=== PATIENT | female | born 1990 ===

== ENCOUNTER 2021-05-20 13:10 | Inpatient (IN) | payer OTHER ==
[~2021-05-20] VITALS: Ht 162.6 cm; Wt 75.0 kg
[2021-05-22] VITALS (51 sets, daily range): BP systolic 95–158; BP diastolic 50–92; PULSE 50–91; TEMP 97.8–98.4
--- NOTE | 2021-05-22 09:10 | NUR ---
pt ambulatory to LR6 with spouse, changed into gown, FHR/TOCO applied and explained. patient here for scheduled induction. Pt denies any leaking of fluid/vaginal bleeding/decreased movement/regular contractions. Plan of care discussed. 0920: IV started in left upper arm, blood obtained and sent to lab, LR infusing. Assessment completed, consents signed, packet given. 0942: pitocin induction discussed, patient agrees with plan of care. Pitocin started at 2mU/hr per protocol.
[2021-05-22] MEDS ORDERED: PRENATAL TABLET PO (09:35)
[2021-05-22 09:49] LABS: BASO % 0.4 % (0.0-2.0); EOS # 0.1 (0.0-0.7); EOS % 0.9 % (0-4.0); HEMATOCRIT 39.8 % (37.0-47.0); HEMOGLOBIN 13.4 g/dl (12.5-16.0); LYMPH # 0.9 (1.2-3.4); LYMPH % 12.1 % (20.0-51.0); MEAN CELL VOLUME 88 fl (80.0-100.0); MEAN CORPUSCULAR HEMOGLOBIN 30 pg (27.0-31.0); MEAN CORPUSCULAR HGB CONC 34 g/dl (33.0-37.0); MEAN PLATELET VOLUME 11.3 fl (7.4-10.4); MONO # 0.5 (0.1-0.6); MONO % 6.6 % (1.7-9.3); PLATELET COUNT 192 K/mm3 (130-400); RED BLOOD COUNT 4.54 M/mm3 (4.10-5.30)
--- NOTE | 2021-05-22 11:55 | NUR ---
Roles at bedside and assessing patient and FHR strip. Plan of care discussed and questions answered. SVE per physician /-2 and orders to continue to increase pitocin. 1255: Patient standing at bedside. 1400: Clear amount of pink tinged fluid noted on chucks on bed. Will continue to monitor. 1445: Small amount of pink tinged fluid noted to chucks after sitting on birthing ball, patient states " I need to go pee and feel like I already did a little". Will continue to monitor fluid/discharge.
--- NOTE | 2021-05-22 13:33 | NUR ---
PATIENT AMBULATING BACK FROM BATHROOM, CONTRACTION MONITOR BEING READJUSTED.
--- NOTE | 2021-05-22 14:45 | NUR ---
PATIENT ASSISTED TO BIRTHING BALL.
--- NOTE | 2021-05-22 15:47 | NUR ---
PATIENT RIGHT LATERAL WITH LEG IN STIRRUP, CONTRACTION MONITOR READJUSTED.
--- NOTE | 2021-05-22 16:15 | NUR ---
Patient up to bathroom and pink tinged fluid leaking to floor. Patient SROM at about 1400. Clear fluid noted. 1640: DrHelen Roles at bedside and assessing patient and FHR strip. SVE-2/80/-2. Order to continue increasing to 30mU/hr.
--- NOTE | 2021-05-22 19:45 | NUR ---
UPDATED ON PT STATUS. AT 1900 SVE 1-2/70/-2, PT DENIES PAIN WITH CONTRACTIONS, BEGINNING TO FEEL "MILD CRAMPING". PITOCIN REMAINS AT 30MU SINCE 1714. SEE PHYS. NOTIFICATION. NO NEW ORDERS AT THIS TIME.
--- NOTE | 2021-05-22 20:20 | NUR ---
UPDATED AT THIS TIME. PT STILL NOT HAVING PAIN WITH CONTRACTIONS, PITOCIN REMAINS AT 30MU. MINIMAL BLEEDING ON BED PAD BUT NO OBVIOUS LEAKING OF FLUID WITH POSITION CHANGES OR AMBULATION. EFM REMAINS CATEGORY 1 STRIP AT THIS TIME. PER TURN PITOCIN OFF. IF CONTRACTIONS BEGIN TO SPACE OUT ADMINISTER 25MCG ORAL CYTOTEC @ 2200. MAY REPEAT X1 Q4H. GIVE 2G IV ANCEF AT 0200 FOR PREVENTATIVE MEASURES DUE TO 1400 SROM. MAY RESTART PITOCIN AT 0600. CALL BACK AT 2200 IF CONTRACTIONS DO NOT SPACE OUT AFTER TURNING PIT OFF. SEE PHYS. NOTIFICATION.
--- NOTE | 2021-05-22 22:25 | NUR ---
UPDATED AT THIS TIME. SVE -/-2. CONTRACTIONS Q2-2.5 MINUTES. PT STILL DENIES PAIN WITH CONTRACTIONS OTHER THAN "MILD CRAMPING". PER DO NOT ADMINISTER CYTOTEC PREVIOUSLY ORDERED. CONTINUE TO MONITOR UNTIL 0000. IF CONTRACTIONS STOP ADMINISTER CYTOTEC PO. IF THEY CONTINUE, WE ARE TO CALL HER BACK. SEE PHYS.NOTIFICATION.
[2021-05-23] VITALS (53 sets, daily range): BP systolic 86–139; BP diastolic 50–86; PULSE 50–103; TEMP 97.6–98.2
--- NOTE | 2021-05-23 | NUR ---
UPDATED AT THIS TIME PER REQUEST. PT C/O PAIN WITH CONTRACTIONS. CONTRACTIONS CURRENTLY SPACING OUT TO Q5MIN. CATEGORY 1 STRIP. PER RESTART PITOCIN AT 2MU PER PROTOCOL. INCREASE PER PROTOCOL. DO NOT ADMINISTER CYTOTEC PO.
--- NOTE | 2021-05-23 02:41 | NUR ---
PT SITTING ON EDGE OF BED PREPARING FOR EPIDURAL PLACEMENT. DIFFICULTY TRACING EFM/TOCO DUE TO MATERNAL POSITIONING. CONTRACTIONS Q2-3 MIN WITH PALPATION. INTERMITTENT EFM TRACING CATEGORY 1 STRIP. LR BOLUS INFUSING. VITAL SIGNS STABLE. 0241: TEST DOSE PER COLLEEN GRADUATE RESEARCH ASSISTANT 0251: 7 MINUTE DECELATION FOLLOWING EPIDURAL PLACEMENT. MATERNAL BP 86/50. IV EPHEDRINE ADMINISTERED. LR BOLUS INFUSING. MOTHER PLACED IN KNEE CHEST POSITION. HEART RATE BEGINS TO RECOVER. 0300: PT PLACED IN LL POSITION. HEART RATE BASELINE REMAINS 155. CATEGORY 1 STRIP AT THIS TIME. MATERNAL BP STABLE. 0340: RECURRENT LATE DECELERATIONS NOTED. PT PLACED IN RL POSITION. IMPROVEMENT NOTED WITH POSITION CHANGE.
--- NOTE | 2021-05-23 04:59 | NUR ---
UPDATE TO REGARDING DECEL EVENT FOLLOWING EPIDURAL PLACEMENT. RECURRENT LATES SINCE THIS EVENT. MINIMAL IMPROVEMENT WITH POSITION CHANGES. PIT STILL AT 8MU. SVE @ 9950 UNCHANGED. STILL -/2. PER SHE WILLB E IN SHORTLY TO SEE HER.
--- NOTE | 2021-05-23 05:15 | NUR ---
AT BEDSIDE DISCUSSING POC AND OPTIONS. SVE 1-2//-2 PER . DISCUSSING CSECTION VS. CONTINUE WITH INDUCTION PROCESS. PT STATES SHE WANTS TO "KEEP TRYING THIS FOR A LITTLE BIT". VERBAL ORDERS TO CONTINUE INCREASING PIT TO INCREASE CONTRACTIONS. REVIEWING STRIP AT THIS TIME.
--- NOTE | 2021-05-23 06:20 | NUR ---
Upon this health underwriter entrance to room, note patient in high smallwood's. Patient repositioned to wedged left @ this time. Roles in-house, verbal order obtained to keep increasing pitocin.
--- NOTE | 2021-05-23 06:45 | NUR ---
Pit bag changed out, as noted, previous bag been hanging for greater than 24 hours. This explained to patient, verbalizes understanding.
--- NOTE | 2021-05-23 06:46 | NUR ---
Repositioned to left lateral with peanut ball.
--- NOTE | 2021-05-23 07:00 | NUR ---
Repositioned to right lateral with peanut ball, after noting consecutive late decels while patient in left lateral.
--- NOTE | 2021-05-23 08:02 | NUR ---
Pit turned off, as no cervical change noted, patient has decided to go for primary .
--- NOTE | 2021-05-23 08:10 | NUR ---
Daniel scrub to abdomen, mons pubis by this field underwriter.
--- NOTE | 2021-05-23 08:27 | NUR ---
here. Discusses with patient plan of care, with plans to proceed to OR around 0900, as , who will be assisting with surgery, has an office procedure scheduled for 0900. Patient et spouse allowed to ask questions, deny any at this time.
--- NOTE | 2021-05-23 08:35 | NUR ---
TORREY Carreon, in to discuss dosing of epidural, TAP block.
--- NOTE | 2021-05-23 08:57 | NUR ---
Taken off of EFM in preparation for transfer to OR per bed.
--- NOTE | 2021-05-23 09:00 | NUR ---
TORREY Carreon, administers bolus dose via epidural catheter in preparation for primary C[place]re[place] section.
--- NOTE | 2021-05-23 09:03 | NUR ---
To OR per bed.
--- NOTE | 2021-05-23 09:11 | NUR ---
ure here for assist.
--- NOTE | 2021-05-23 09:23 | NUR ---
0.2 mg Methergine IM to right anterolateral thigh administered by Lauri Caceres CRNA.
--- NOTE | 2021-05-23 09:45 | NUR ---
Toradol 60 mg IM administered by Lauri Caceres CRNA to left anterolateral thigh.
[2021-05-24 03:40] VITALS: BP 109/52; PULSE 55; TEMP 97.6
[2021-05-24 07:28] VITALS: BP 109/65; PULSE 59; TEMP 98.3
[2021-05-24 10:01] LABS: HEMATOCRIT 35.4 % (37.0-47.0)
[2021-05-24] MEDS ORDERED: IBU600 MG PO (12:12)
[2021-05-24] MEDS ORDERED: PERCOCET 325 MG1 TA2 PO (12:12)
[2021-05-24 12:45] VITALS: BP 130/80; PULSE 80; TEMP 98
[2021-05-24 15:45] VITALS: BP 108/50; PULSE 69
[2021-05-24 19:15] VITALS: BP 130/82; PULSE 65; TEMP 97.2
--- NOTE | 2021-05-25 07:13 | NUR ---
PATIENT AMBULATING IN HALLWAY
[2021-05-25 07:45] VITALS: BP 125/84; PULSE 81; TEMP 98
== END 2021-05-25 11:00 | disposition home or self-care (01) | DRG 788 ==
LOC: LDR 05-22 09:03 → OB 05-22 09:03
PROVIDERS: ADMIT Obstetrics & Gynecology
PROC: 10D00Z1 Extraction of Products of Conception, Low, Open Approach (ICD-10-PCS; principal; 2021-05-23)
DX: O62.1 Secondary uterine inertia (principal); Z3A.40 40 weeks gestation of pregnancy; Z37.0 Single live birth
CPT/HCPCS: J0171; J0690; J2370; J2405; J2590; J7120